=== PATIENT | male | born 1940 | race Caucasian/White ===

== ENCOUNTER → 2016-09-05 | Outpatient (CLI) | payer MEDICARE, OTHER | LOC: LAB.O 07:04 | PROVIDERS: ATTEND Nurse Practitioner Family | DX: I10 Essential (primary) hypertension (principal) ==

== ENCOUNTER → 2016-12-12 | Outpatient (CLI) | payer MEDICARE, OTHER | END | disposition home or self-care (01) | LOC: LAB.O 07:06 | PROVIDERS: ATTEND Nurse Practitioner Family | DX: I10 Essential (primary) hypertension (principal) ==

== ENCOUNTER → 2017-07-30 | Outpatient (CLI) | payer MEDICARE, OTHER ==
--- NOTE | 2017-07-30 15:24 | RAD ---
EXAM DESCRIPTION: Chest,2 Views CLINICAL HISTORY: DYSPNEA COMPARISON: September 11, 2012 FINDINGS: Two-view chest x-ray shows cardiomediastinal silhouette and pulmonary vasculature to be within normal limits. The lungs are normally aerated and clear. Costophrenic angles are sharp. Osseous structures are unremarkable . Mild increased density projects over the lower thoracic spine only seen on lateral projection. IMPRESSION: No radiographic evidence of acute cardiopulmonary disease. Increased density projecting over the lower thoracic spine only on lateral view probably represents overlapping densities from the ribs Electronically signed by: Corky Billy MD 07/30/2017 3:22 PM [facility]
== END | disposition home or self-care (01) ==
LOC: LAB.O 09:42
PROVIDERS: ATTEND Nurse Practitioner Family
DX: R06.00 Dyspnea, unspecified (principal)

== ENCOUNTER 2018-03-13 07:24 | Emergency (ER) | payer MEDICARE, OTHER ==
[2018-03-13 07:35] VITALS: TEMP 97.2
[2018-03-13] MEDS ORDERED: ORPHENADRINE CITRATE 30 MG/ML AMP IM ONE (07:56)
[2018-03-13] MEDS ORDERED: HYDROcodone 10MG/APAP 325MG 1 EA TAB PO ONE (07:57)
[2018-03-13] MEDS ORDERED: KETOROLAC TROMETHAMINE INJ 60 MG/2 ML VIAL IM ONE (07:57)
--- NOTE | 2018-03-13 08:02 | ED.PDOC ---
History of Present Illness - General Chief Complaint: Back Pain or Injury Stated Complaint: Low back discomfort Time Seen by Provider: 03/13/18 07:32 Source: patient Exam Limitations: no limitations - History of Present Illness Initial Comments: PT REPORTS ONSET OF RIGHT SIDED LOW BACK PAIN WITH RADIATION DOWN THE RIGHT LEG THAT BEGAN UPON STANDING UP FROM HIS RECLINER YESTERDAY MORNING. PT REPORTS THAT PAIN HAS PROGRESSIVELY GOTTEN WORSE SINCE THEN AND PT IS HAVING DIFFICULTY WALKING DUE TO PAIN. PT REPORTS PREVIOUS LOW BACK STRAIN APPROXIMATELY 2 MONTHS AGO. PT DENIES BOWEL OR BLADDER DYSFUNCTION. Quality/Severity: moderate Back Pain Location: lumbar spine Back Pain Radiation: buttocks, upper legs Improving Factors: immobilization Worsening Factors: movement Associated Symptoms: muscle spasms, lower back pain Allergies/Adverse Reactions: Allergies Fish Oil Allergy (Verified 03/13/18 07:37) Other "sets him on fire" Latex Allergy (Verified 03/13/18 07:37) Unknown Morphine Allergy (Verified 03/13/18 07:37) Other Causes phlebitis Home Medications: Ambulatory Orders Aspirin [Aspirin Low Dose] 81 mg PO DAILY 09/11/12 Acetaminophen W/ Codeine [Tylenol W/ CODEINE #3] 1 ea PO Q4HR PRN #24 03/13/18 Amlodipine Besylate-Olmesartan [Amlodipine/Olmesartan Med 5-20 mg] 1 tab PO DAILY 03/13/18 Bisoprolol Fumarate [Bisoprolol Fumarate] 5 mg PO DAILY 03/13/18 Cyclobenzaprine HCl [Flexeril] 10 mg PO Q6HR PRN #20 tab 03/13/18 Hydrochlorothiazide [Hydrochlorothiazide] 25 mg PO DAILY 03/13/18 Loratadine [Claritin] 10 mg PO DAILY PRN 03/13/18 Meloxicam [Meloxicam] 15 mg PO DAILY 03/13/18 Omeprazole 20 mg PO DAILY PRN 03/13/18 Review of Systems - Review of Systems Constitutional: Denies: chills, fever EENTM: Denies: nose congestion, throat pain Respiratory: Denies: cough, short of breath Cardiology: Denies: chest pain, palpitations Gastrointestinal/Abdominal: Denies: nausea, vomiting Genitourinary: Denies: dysuria, frequency Musculoskeletal: States: see HPI, back pain, muscle stiffness Skin: Denies: dryness, lesions Neurological: Denies: headache, numbness, paresthesia Endocrine: States: no symptoms reported Hematologic/Lymphatic: States: no symptoms reported Past Medical History (General) - Patient Medical History Hx Stroke: No Hx Cardiac Disorders: Yes - Cholesterol Hx Congestive Heart Failure: No Hx Hypertension: Yes Hx Diabetes: No Hx Gastroesophageal Reflux: Yes Surgical History: cholecystectomy - Vaccination History Hx Influenza Vaccination: Yes - 2016 Hx Pneumococcal Vaccination: Yes - Social History Hx Tobacco Use: No Hx Alcohol Use: No Family Medical History - Family History Father Living Status: Hx Family Stroke: Yes Physical Exam - Physical Exam General Appearance: Alert, No apparent distress, Well Developed, Well Groomed, Well Hydrated, Well Nourished Eyes, Ears, Nose, Throat Exam: normal ENT inspection Neck Exam: normal inspection Cardiovascular/Respiratory: no respiratory distress Back Exam: normal inspection, no CVA tenderness, no vertebral tenderness, muscle spasm - ON RIGHT Extremity Exam: no evidence of injury, normal range of motion - + STRAIGHT LEG RAISE AT 45 DEGREES ON RIGHT Neurologic: no motor/sensory deficits, alert, normal mood/affect, oriented x 3 Skin Exam: normal color, warm/dry Progress - Progress Progress: 03/13/18 08:45 PT REPORTS SOME IMPROVEMENT IN PAIN AFTER TORADOL, NORFLEX, AND NORCO. XRAY FINDINGS DISCUSSED. CT LUMBAR SPINE ORDERED. - EKG/XRAY/CT XRAY: LUMBAR: L1 COMPRESSION FX CT Ordered: Yes - LUMBAR: VERTEBRAL BODY FX OF L1 CT Interpretation Call Back: No - Consult/PCP Time Called: 09:45 Consult/PCP: DR. SANTANA (NEUROSURGEON) Consult Reason/Comments: CASE DISCUSSED, WISHES TO SEE PT IN OFFICE TOMORROW. Departure - Departure Clinical Impression: Closed fracture of lumbar vertebral body Time of Disposition: 09:59 Disposition: Discharge to Home or Self Care Condition: Good Departure Forms: ED Discharge - Pt. Copy, Patient Portal Self Enrollment Instructions: Vertebral Compression Fracture (DC) Referrals: Nelson Santana Jr, MD [Physicians] - 1-2 Days (APPOINTMENT WAS MADE FOR TOMORROW 03/14/18 @8:30 AM.) Prescriptions: Acetaminophen W/ Codeine [Tylenol W/ CODEINE #3] 1 ea PO Q4HR PRN #24 PRN Reason: Pain Cyclobenzaprine HCl [Flexeril] 10 mg PO Q6HR PRN #20 tab PRN Reason: Muscle Spasms Home Medications: Ambulatory Orders Aspirin [Aspirin Low Dose] 81 mg PO DAILY 09/11/12 Acetaminophen W/ Codeine [Tylenol W/ CODEINE #3] 1 ea PO Q4HR PRN #24 03/13/18 Amlodipine Besylate-Olmesartan [Amlodipine/Olmesartan Med 5-20 mg] 1 tab PO DAILY 03/13/18 Bisoprolol Fumarate [Bisoprolol Fumarate] 5 mg PO DAILY 03/13/18 Cyclobenzaprine HCl [Flexeril] 10 mg PO Q6HR PRN #20 tab 03/13/18 Hydrochlorothiazide [Hydrochlorothiazide] 25 mg PO DAILY 03/13/18 Loratadine [Claritin] 10 mg PO DAILY PRN 03/13/18 Meloxicam [Meloxicam] 15 mg PO DAILY 03/13/18 Omeprazole 20 mg PO DAILY PRN 03/13/18
--- NOTE | 2018-03-13 08:39 | RAD ---
EXAM DESCRIPTION: Lumbar Spine 5 Views CLINICAL HISTORY: 77 years Male, right side low back pain COMPARISON: None. FINDINGS: Five views of the lumbar spine show anterior compression of the L1 body resulting in approximately 50% loss of anterior vertebral body height. No additional vertebral body fracture or subluxation is identified. There are small anterior osteophytes at several levels in the lumbar spine, but the disc spaces are well-maintained. Minimal levoscoliosis. The spinous and transverse processes are intact. Bilateral oblique views show no evidence of pars defect. IMPRESSION: L1 compression fracture, questionable acuity. If clinically suspicious of acute compression fracture, CT or MRI suggested. Mild multilevel degenerative changes including slight levoscoliosis. Electronically signed by: Richar Syed MD 03/13/2018 8:38 AM CDT
--- NOTE | 2018-03-13 09:33 | CT ---
EXAM DESCRIPTION: Lumbar Spine: Computed Tomography. CLINICAL HISTORY: low back pain, L1 COMPRESSION FX COMPARISON: Lumbar spine radiographs on this visit. TECHNIQUE: Spiral, axial 2.5 mm scans through the lumbarspine without contrast. Coronal and sagittal 2.0 mm Reconstructions. Total Exam DLP: 657.74 mGy-cm. This exam was performed according to our departmental dose-optimization program which includes automated exposure control, adjustment of the mA and/or kV according to patient size and/or use of iterative reconstruction technique; to reduce radiation dose to as low as reasonably achievable (ALARA). FINDINGS: Fracture line is noted to the superior L1 from the anterior cortical margin to the posterior cortical margin. The fracture line does not extend into the pedicles. Bilateral lamina are intact. Bilateral pars interarticulares are intact. Height of the anterior vertebral body is 1.65 cm. Posterior height 2.5 cm. Height of the anterior L2 vertebral body is 2.5 cm. No significant retropulsion. No spondylolisthesis at T12-L1 or L1-2. No soft tissue mass in the spinal canal posterior to the fracture. No canal or foraminal stenosis at T12-L1 or L1-2. Other vertebral bodies with normal bone density no compression type fractures. Anterior endplate spurs at L3 and L4. Minimal bulging of the L2-3 disc narrowing the foramina and canal but no stenosis. Bilateral facet arthrosis. L3-4: Minimal disc bulging. Bilateral foraminal narrowing by bulging disc and canal narrowing but no stenosis. Bilateral facet arthrosis. L4-5: Disc space preserved with minimal anterior bulging. Minimal posterior bulging and bilateral facet arthrosis and flavum ligament hypertrophy. AP canal diameter 10 mm. L5-S1: Posterior disc space narrowing. Posterior broad-based bulge abutting the thecal sac. Bilateral flavum ligament hypertrophy and bilateral facet arthrosis. Borderline central canal stenosis. Bilateral moderate foraminal narrowing. Trace retrolisthesis. Minimal arthrosis of the bilateral anterior SI joints with marginal spur formation. IMPRESSION: 1. Transverse fracture of the superior L1 vertebral body from anterior to posterior but not extending into the pedicles. No fracture of the lamina facets or bilateral pars interarticulares. Approximately 35% depression of the anterior vertebral body compared to posterior vertebral body or anterior L2. No canal or foraminal stenosis. 2. Disc bulging at other levels but no fracture of the vertebral bodies or posterior elements. Bilateral moderate foraminal narrowing L5-S1 with borderline central canal stenosis. Also borderline central canal stenosis at L4-5. Electronically signed by: Sergio Oliva MD 03/13/2018 9:32 AM CDT
[2018-03-13 10:02] VITALS: BP 124/75
[2018-03-13 10:15] VITALS: O2SAT 95
== END 2018-03-13 10:30 | disposition home or self-care (01) ==
LOC: ER 07:24
DX: S32.010A Wedge compression fracture of first lumbar vertebra, initial encounter for closed fracture (principal); M47.817 Spondylosis without myelopathy or radiculopathy, lumbosacral region; E78.00 Pure hypercholesterolemia, unspecified; I10 Essential (primary) hypertension; K21.9 Gastro-esophageal reflux disease without esophagitis; Z79.899 Other long term (current) drug therapy; Z79.82 Long term (current) use of aspirin; Z91.040 Latex allergy status; Z88.5 Allergy status to narcotic agent; X50.9XXA Other and unspecified overexertion or strenuous movements or postures, initial encounter; Y92.9 Unspecified place or not applicable
CPT/HCPCS: 72114; 72131; J1885; J2360

== ENCOUNTER → 2018-07-15 | Outpatient (CLI) | payer MEDICARE, OTHER | LOC: LAB.O 07:10 | PROVIDERS: ATTEND Nurse Practitioner Family | DX: I10 Essential (primary) hypertension (principal) ==

== ENCOUNTER → 2019-04-02 | Outpatient (CLI) | payer MEDICARE, OTHER ==
--- NOTE | 2019-04-02 11:52 | RAD ---
EXAM DESCRIPTION: Chest,2 Views CLINICAL HISTORY: CHEST PAIN COMPARISON: Previous study July 30, 2017 TECHNIQUE: PA/lateral FINDINGS: Clothing artifact (button) over the lower right chest. Heart size is normal with normal pulmonary vascularity. No pleural effusion or pneumothorax. Linear scarring or discoid atelectasis in the lingula. Lungs are otherwise clear with no consolidating infiltrate. Lateral view shows intact sternum and osteopenic T-spine. IMPRESSION: No acute process is identified in the chest. Electronically signed by: Kieran Becker MD 04/02/2019 11:51 AM CDT
== END ==
LOC: RAD 10:41
PROVIDERS: ATTEND Nurse Practitioner Family
DX: R07.89 Other chest pain (principal)

== ENCOUNTER → 2019-08-11 | Outpatient (CLI) | payer MEDICARE, OTHER | LOC: LAB.O 07:09 | PROVIDERS: ATTEND Internal Medicine Nephrology | DX: I12.9 Hypertensive chronic kidney disease with stage 1 through stage 4 chronic kidney disease, or unspecified chronic kidney disease (principal); N18.3 Chronic kidney disease, stage 3 (moderate); D63.1 Anemia in chronic kidney disease ==

== ENCOUNTER → 2020-02-12 | Outpatient (CLI) | payer MEDICARE, OTHER | LOC: LAB.O 07:06 | PROVIDERS: ATTEND Internal Medicine Nephrology | DX: I13.0 Hypertensive heart and chronic kidney disease with heart failure and stage 1 through stage 4 chronic kidney disease, or unspecified chronic kidney disease (principal); N18.3 Chronic kidney disease, stage 3 (moderate); I50.9 Heart failure, unspecified; D63.0 Anemia in neoplastic disease ==

== ENCOUNTER → 2020-05-13 | Outpatient (CLI) | payer MEDICARE, OTHER | LOC: LAB.O 07:07 | PROVIDERS: ATTEND Internal Medicine Nephrology | DX: N18.31 Chronic kidney disease, stage 3a (principal); D63.1 Anemia in chronic kidney disease; I12.9 Hypertensive chronic kidney disease with stage 1 through stage 4 chronic kidney disease, or unspecified chronic kidney disease ==

== ENCOUNTER → 2020-08-19 | Outpatient (CLI) | payer MEDICARE, OTHER | LOC: LAB.O 10:33 | PROVIDERS: ATTEND Internal Medicine Nephrology | DX: I12.9 Hypertensive chronic kidney disease with stage 1 through stage 4 chronic kidney disease, or unspecified chronic kidney disease (principal); N18.31 Chronic kidney disease, stage 3a; D63.1 Anemia in chronic kidney disease ==